=== PATIENT | female | born 1985 | race African-American/Black ===

== ENCOUNTER 2017-12-07 18:12 | Emergency (ER) | payer BC, MEDICAID ==
[2017-12-07] MEDS ORDERED: KETOROLAC TROMETHAMINE INJ/PF 30 MG/1 ML SDV IV ONE (19:11)
[2017-12-07] MEDS ORDERED: NORMAL SALINE 1000 ML 1,000 ML IV ONE ×2 (19:11→23:44)
--- NOTE | 2017-12-07 19:13 | ER Document Report ---
ED Medical Screen (RME) - General Chief Complaint: Flank Pain Stated Complaint: BACK PAIN Time Seen by Provider: 12/07/17 19:07 Notes: 32-year-old female patient reports sudden onset 2 PM today of right flank pain going into the right side. She is unable to sit still is up walking pacing the floor. Past history significant for a 6 week miscarriage 2 weeks ago at [facility]. She reports that it was a completed miscarriage at that time. She also had a "kidney infection" and was treated with an antibiotic. She has never had a kidney stone before. Brief exam shows right CVA percussion tenderness. There is also some tenderness to palpate deep into the right upper quadrant. Right lower quadrant is not tender. Pain does not radiate into the labia. I have greeted and performed a rapid initial assessment of this patient. A comprehensive ED assessment and evaluation of the patient, analysis of test results and completion of the medical decision making process will be conducted by additional ED providers. TRAVEL OUTSIDE OF THE [place] IN LAST 30 DAYS: No - Related Data Allergies/Adverse Reactions: No Known Allergies Allergy (Verified 12/07/17 18:12) Past Medical History - Immunizations Hx Diphtheria, Pertussis, Tetanus Vaccination: Yes Physical Exam - Vital signs Vitals: Temp Pulse Resp BP Pulse Ox 98.7 F 85 14 128/70 H 100 12/07/17 18:15 12/07/17 18:15 12/07/17 18:15 12/07/17 18:15 12/07/17 18:15 Course - Vital Signs Vital signs: Temp Pulse Resp BP Pulse Ox 98.7 F 85 14 128/70 H 100 12/07/17 18:15 12/07/17 18:15 12/07/17 18:15 12/07/17 18:15 12/07/17 18:15
[2017-12-07 19:45] LABS: APPEARANCE,URINE CLOUDY; BILIRUBIN,URINE NEGATIVE (NEGATIVE); COLOR,URINE YELLOW; GLUCOSE, URINE NEGATIVE (NEGATIVE); KETONES,URINE NEGATIVE (NEGATIVE); LEUKOCYTE ESTERASE,URINE LARGE (NEGATIVE); NITRITE,URINE POSITIVE (NEGATIVE); PROTEIN,URINE >=500 mg/dL (NEGATIVE); URINE SPECIFIC GRAVITY 1.018; UROBILINOGEN,URINE NEGATIVE mg/dL (<2.0)
[2017-12-07 20:07] LABS: ABSOLUTE BASOPHILS # (AUTO) 0.1 10^3/uL (0.0-0.2); ABSOLUTE LYMPHOCYTES (AUTO) 1.8 10^3/uL (0.5-4.7); ABSOLUTE MONOCYTES (AUTO) 0.7 10^3/uL (0.1-1.4); ABSOLUTE NEUT (AUTO) 10.4 10^3/uL (1.7-8.2); BASOPHILS % (AUTO) 0.6 % (0-2); EOSINOPHILS % (AUTO) 0.1 % (0-6); HEMATOCRIT 37.5 % (36.0-47.0); LYMPHOCYTES % (AUTO) 13.5 % (13-45); MEAN CORPUSCULAR HEMOGLOBIN 25.8 pg (27.0-33.4); MEAN CORPUSCULAR HGB CONC 32.1 g/dL (32.0-36.0); MEAN CORPUSCULAR VOLUME 81 fl (80-97); MONOCYTES % (AUTO) 5.7 % (3-13); PLATELET COUNT 349 10^3/uL (150-450); RED BLOOD COUNT 4.66 10^6/uL (3.72-5.28); RED CELL DISTRIBUTION WIDTH 16.1 % (11.5-14.0); SEGMENTED NEUTROPHILS % (AUTO) 80.1 % (42-78); TOTAL CELLS COUNTED % (AUTO) 100 %
[2017-12-07 20:23] LABS: ALANINE AMINOTRANSFERASE 59 U/L (9-52); ALBUMIN 4.2 g/dL (3.5-5.0); ALKALINE PHOSPHATASE 96 U/L (38-126); ANION GAP 7 (5-19); ASPARTATE AMINO TRANSFERASE 29 U/L (14-36); BILIRUBIN,DIRECT 0.3 mg/dL (0.0-0.4); BILIRUBIN,TOTAL 0.5 mg/dL (0.2-1.3); BLOOD UREA NITROGEN 21 mg/dL (7-20); CARBON DIOXIDE 30 mmol/L (22-30); CHLORIDE 104 mmol/L (98-107); GLUCOSE 104 mg/dL (75-110); SODIUM 141.2 mmol/L (137-145); TOTAL PROTEIN 7.6 g/dL (6.3-8.2)
[2017-12-07] MEDS ORDERED: LEVOFLOXACIN 500 MG/D5W RTU 500 MG/100 ML RTUPB IV ONE (20:32)
--- NOTE | 2017-12-07 20:40 | ER Document Report ---
ED General - General Chief Complaint: Flank Pain Stated Complaint: BACK PAIN Time Seen by Provider: 12/07/17 19:07 Notes: Patient is a 32-year-old female with a past medical history of hypertension who presents with acute onset of right flank pain several hours prior to arrival. She describes as a severe, stabbing pain to her right flank that radiates to her labia on the right side. She denies a history of similar symptoms in the past. She states nothing improves or worsens this pain. She notes that it has improved however since arriving the emergency department and receiving Toradol. She denies any history of nephrolithiasis but does note that she was recently hospitalized at [facility] in [place] for pyelonephritis with associated sepsis. She states that she completed all antibiotics with which she was sent home and had been feeling well until today. She denies any fever or constitutional symptoms but does note that she has been nauseated and had some vomiting since onset of this pain. She has not seen her primary care doctor regarding today's concerns. TRAVEL OUTSIDE OF THE [place] IN LAST 30 DAYS: No - Related Data Allergies/Adverse Reactions: cephalexin [From [employer]] Allergy (Verified 12/07/17 19:13) Past Medical History - General Information source: Patient - Social History Smoking Status: Never Smoker Chew tobacco use (# tins/day): No Frequency of alcohol use: None Drug Abuse: None Lives with: Family Family History: Reviewed & Not Pertinent Patient has suicidal ideation: No Patient has homicidal ideation: No - Past Medical History Cardiac Medical History: Reports: Hx Hypertension Renal/ Medical History: Denies: Hx Peritoneal Dialysis - Immunizations Hx Diphtheria, Pertussis, Tetanus Vaccination: Yes Review of Systems - Review of Systems Notes: Constitutional: Negative for fever. HENT: Negative for sore throat. Eyes: Negative for visual changes. Cardiovascular: Negative for chest pain. Respiratory: Negative for shortness of breath. Gastrointestinal: Positive for flank pain and vomiting Genitourinary: Positive positive for dysuria. Musculoskeletal: Negative for back pain. Skin: Negative for rash. Neurological: Negative for headaches, weakness or numbness. 10 point ROS negative except as marked above and in HPI. Physical Exam - Vital signs Vitals: Temp Pulse Resp BP Pulse Ox 98.7 F 85 14 128/70 H 100 12/07/17 18:15 12/07/17 18:15 12/07/17 18:15 12/07/17 18:15 12/07/17 18:15 Interpretation: Normal Notes: PHYSICAL EXAMINATION: GENERAL: Appears moderately uncomfortable but in no acute distress HEAD: Atraumatic, normocephalic. EYES: Pupils equal round and reactive to light, extraocular movements intact, sclera anicteric, conjunctiva are normal. ENT: nares patent, oropharynx clear without exudates. Dry mucous membranes. NECK: Normal range of motion, supple without lymphadenopathy LUNGS: Breath sounds clear to auscultation bilaterally and equal. No wheezes rales or rhonchi. HEART: Regular rate and rhythm without murmurs ABDOMEN: Soft, right CVA tenderness to palpation. No other localized areas of tenderness to palpation. EXTREMITIES: Normal range of motion, no pitting or edema. No cyanosis. NEUROLOGICAL: No focal neurological deficits. Moves all extremities spontaneously and on command. PSYCH: Normal mood, normal affect. SKIN: Warm, Dry, normal turgor, no rashes or lesions noted. Course - Re-evaluation Re-evalutation: 12/07/17 20:39 Patient presents with acute onset of right flank pain with a recent history of pyelonephritis and associated sepsis hospitalizing [place] who presents with recurrent right flank pain. Patient urinalysis is consistent with acute pyelonephritis. However most concerned with possibility of an infected stone as the patient states that the pain was acute in onset which would be atypical for pyelonephritis. On examination patient has some mild right CVA tenderness but has no additional focal abdominal tenderness to suggest acute appendicitis, pancreatitis, and she is multiple years status post cholecystectomy. Will send for CT of the abdomen pelvis without contrast to better evaluate for possibility of a kidney stone. 12/07/17 23:15 CT scan does show a 11 mm stone with associated hydronephrosis on the left with associated pyelonephritis. I contacted [facility] and awaiting transfer. Patient has received IV fluids and IV levofloxacin. She has been made n.p.o. 12/07/17 23:44 I discussed this case with the urologist on-call at [facility] Dr. Yu and he has accepted the patient in transfer. 12/08/17 03:07 Patient remains hemodynamically stable, IV fluids at maintenance. Awaiting transport. - Vital Signs Vital signs: Temp Pulse Resp BP Pulse Ox 99.2 F 85 24 H 125/71 98 12/08/17 02:00 12/07/17 18:15 12/08/17 02:01 12/08/17 02:00 12/08/17 02:01 - Laboratory Result Diagrams: 12/07/17 19:45 12/07/17 19:45 Laboratory results interpreted by me: 12/07/17 12/07/17 12/07/17 19:16 19:45 19:45 WBC 13.0 H MCH 25.8 L RDW 16.1 H Seg Neutrophils % 80.1 H Absolute Neutrophils 10.4 H BUN 21 H ALT 59 H Urine Protein >=500 H Urine Blood MODERATE H Urine Nitrite POSITIVE H Ur Leukocyte Esterase LARGE H - Diagnostic Test Radiology reviewed: Image reviewed, Reports reviewed Radiology results interpreted by me: 12/08/17 03:06 CT scan abdomen pelvis: Right urolithiasis with associated right hydronephrosis Discharge - Discharge Clinical Impression: Right kidney stone, Hydronephrosis, right, Pyelonephritis Condition: Fair Disposition: [facility] Referrals: BRENNA HARRIS MD [Primary Care Provider] - Follow up as needed
--- NOTE | 2017-12-07 22:32 | RADIOLOGY REPORT (SQ) ---
EXAM DESCRIPTION: CT ABD/PELVIS NO ORAL OR IV COMPLETED DATE/TIME: 12/07/2017 9:15 pm REASON FOR STUDY: right flank pain, eval infected stone COMPARISON: None. TECHNIQUE: CT scan of the abdomen and pelvis performed without intravenous or oral contrast. Images reviewed with lung, soft tissue, and bone windows. Reconstructed coronal and sagittal MPR images revi ewed. All images stored on PACS. All CT scanners at this facility use dose modulation, iterative reconstruction, and/or weight based d osing when appropriate to reduce radiation dose to as low as reasonably achievable (ALARA). [facility]: Dose Right [facility]: CareDose [facility]: Dose Right [facility]: Teradose 4D [facility]: Smart Explorys RADIATION DOSE: CT Rad equipment meets quality standard of care and radiation dose reduction techniq ues were employed. CTDIvol: 18.8 mGy. DLP: 1016 mGy-cm.mGy. LIMITATIONS: None. FINDINGS: LOWER CHEST: No significant findings. No nodules or infiltrates. NON-CONTRASTED LIVER, SPLEEN, ADRENALS: Evaluation limited by lack of IV contrast. No identified sign ificant masses. PANCREAS: No masses. No peripancreatic inflammatory changes. GALLBLADDER: Surgically absent. RIGHT KIDNEY AND URETER: No suspicious masses. Assessment limited by lack of IV contrast. Mild medu llary calcinosis. Moderate hydronephrosis on the basis of a 8 x 6 x 11 mm proximal ureterolith. LEFT KIDNEY AND URETER: No suspicious masses. Assessment limited by lack of IV contrast. A nonobstr ucting nephrolith is seen within the inferior pole collecting system. Background of medullary calcin osis. No hydronephrosis or hydroureter. AORTA AND RETROPERITONEUM: No aneurysm. No retroperitoneal masses or adenopathy. BOWEL AND PERITONEAL CAVITY: No obvious masses or inflammatory changes. No free fluid. APPENDIX: Normal. PELVIS, BLADDER, AND ABDOMINAL WALL:No abnormal masses. No free fluid. Bladder normal. BONES: No significant findings. OTHER: No other significant finding. IMPRESSION: Moderate right-sided hydronephrosis on the basis of an 8 x 6 x 11 mm proximal ureterolit h. Background of bilateral medullary calcinosis. Nonobstructing left-sided nephroliths. COMMENT: Quality ID # [id number]: Final reports with documentation of one or more dose reduction techniques (e.g., Automated exposure control, adjustment of the mA and/or kV according to patient size, use of iterative reconstruction technique) TECHNICAL DOCUMENTATION: JOB ID: [id number] [employer]- All Rights Reserved Reading location - IP/workstation name: [email or web address]
[2017-12-07] MEDS ORDERED: METHYLDOPA 250 MG TABLET PO ONE (23:27)
[2017-12-07] MEDS: MORPHINE SULFATE 10 MG/ML INJ IV PRN (23:39)
[2017-12-08] MEDS: MORPHINE SULFATE 10 MG/ML INJ IV PRN ×3 (08:20→13:49)
--- NOTE | 2017-12-08 09:15 | ER Document Report ---
Doctor's Note Notes: This is a 32-year-old female awaiting transfer for an acute obstructive uropathy with continent urinary infection. She has a history of a recent hospitalization in [place] from November 21- for pyelonephritis with sepsis. She denies having a CT at that time. She states she felt good on discharge and was given antibiotics and did well until yesterday when she started having acute pain again. CT scan last night reveals a proximal 11 mm obstructing right ureter stone with significant hydronephrosis and hydroureter. Patient has received IV fluids, IV pain medicine and IV antibiotics (levofloxacin). Her urine and blood cultures have already come back positive for gram-negative rods. On exam, the patient is comfortable right now and her pain is controlled with morphine. She is afebrile and her vital signs are stable. We will continue with IV fluids, IV antibiotics, Flomax, IV antiemetics as needed. We are awaiting bed assignment at [facility] but there is no word on a bed assignment as of yet. I have contacted [facility] and I spoke to Dr. Chang of urology and he has agreed to see the patient in consult for stenting. He would like the patient go to the hospitalist service (at [facility]) for treatment of sepsis in the meantime. They have been paged. 12/08/17 09:13 12/08/17 09:[address] Hernandez of the hospitalist service and [place] ([facility]) and he is willing to accept the patient and we will transfer the patient there. 12/08/17 10:44 Dr. Mehta has just called from [facility] and I have reviewed the case with him. While he agrees that the patient requires stenting, he expressed concern for transport "2 hours away in the $5000 bill for transport". I did explain to Dr. Mehta that I have already contacted [facility] for transport there (this facility is closer). As noted above, I initially contacted [facility] because we were not getting a bed assignment in [place]. In any event, the patient remains hemodynamically stable and looks good at this time and we are maintaining her n.p.o. 12/08/17 14:10 The patient is comfortable currently. Transport is here. She is hemodynamically stable. She is being transferred to [facility]. 12/08/17 14:11
[2017-12-08] MEDS ORDERED: NORMAL SALINE 1000 ML 1,000 ML IV ONE (09:33)
[2017-12-08] MEDS ORDERED: TAMSULOSIN HCL 0.4 MG CAP.SR.24H PO ONE (09:34)
[2017-12-08] MEDS ORDERED: ONDANSETRON HCL INJ/PF 4 MG/2 ML SDV IV ONE (09:35)
[2017-12-08 13:23] VITALS: BP 101/53
[2017-12-08] MEDS ORDERED: LEVOFLOXACIN 500 MG/D5W RTU 500 MG/100 ML RTUPB IV ONE (20:30)
== END 2017-12-08 13:55 | disposition short-term general hospital (02) ==
LOC: ER 18:12
DX: N13.2 Hydronephrosis with renal and ureteral calculous obstruction (principal); N12 Tubulo-interstitial nephritis, not specified as acute or chronic; R10.9 Unspecified abdominal pain; M54.9 Dorsalgia, unspecified; I10 Essential (primary) hypertension; R30.0 Dysuria
CPT/HCPCS: 96376; 99285; 96361; 96375; 96365; 36415; 87040; 87086; 84702; 85025; 87077; 87088; 80053; 81001; 87186; 74176; J1956; J3490; J1885; J2270 ×2; J2405; J7030 ×2

== ENCOUNTER → 2018-01-11 | Outpatient (CLI) | payer BC ==
--- NOTE | 2018-01-11 12:22 | RADIOLOGY REPORT (SQ) ---
EXAM DESCRIPTION: KUB/ABDOMEN (SINGLE VIEW) COMPLETED DATE/TIME: 01/11/2018 10:37 am REASON FOR STUDY: RIGHT URETERAL STONE (N20.1) COMPARISON: Abdominal CT scan dated 12/07/2017 NUMBER OF VIEWS: One view. TECHNIQUE: Supine radiographic image of the abdomen acquired. LIMITATIONS: None. FINDINGS: BOWEL GAS PATTERN: Normal bowel gas pattern. No dilated loops. CALCIFICATIONS: Left renal calculi are identified which were present on the previous CT scan. No def inite right renal or ureteric calculi are identified. SOFT TISSUES: No gross mass or suggestion of organomegaly. HARDWARE: Double-J stent is identified in position on the right. BONES: No acute fracture. No worrisome bone lesions. OTHER: No other significant finding. IMPRESSION: Left renal calculi. Double-J stent in position on the right. Other findings as noted jefry vasquez TECHNICAL DOCUMENTATION: JOB ID: [id number] [employer]- All Rights Reserved Reading location - IP/workstation name: [email or web address]
== END ==
LOC: RAD 09:45
PROVIDERS: ATTEND Urology
DX: N20.1 Calculus of ureter (principal)
CPT/HCPCS: 74018